=== PATIENT | male | born 1995 ===

== ENCOUNTER 2018-05-27 01:16 | Emergency (ER) | payer SELFPAY ==
[~2018-05-27] VITALS: Ht 177.8 cm; Wt 85.2 kg
[2018-05-27 05:07] VITALS: BP 126/88
== END 2018-05-27 07:22 | disposition left against medical advice (07) ==
LOC: ER 01:16
DX: Z53.21 Procedure and treatment not carried out due to patient leaving prior to being seen by health care provider (principal)